=== PATIENT | female | born 1975 | race Caucasian/White ===

== ENCOUNTER 2016-07-09 12:52 | Emergency (ER) | payer MEDICARE, OTHER | END 2016-07-09 16:52 | disposition home or self-care (01) | LOC: ER 12:52 | DX: N30.10 Interstitial cystitis (chronic) without hematuria (principal); M25.512 Pain in left shoulder; K21.9 Gastro-esophageal reflux disease without esophagitis; E78.5 Hyperlipidemia, unspecified; E03.9 Hypothyroidism, unspecified; F17.210 Nicotine dependence, cigarettes, uncomplicated; E78.00 Pure hypercholesterolemia, unspecified; Z90.710 Acquired absence of both cervix and uterus; Z79.899 Other long term (current) drug therapy; Z88.1 Allergy status to other antibiotic agents | CPT/HCPCS: 36415; 96361; 96374; 96375; J1885 ==

== ENCOUNTER 2016-07-11 22:01 | Emergency (ER) | payer MEDICARE, OTHER | END 2016-07-11 22:50 | disposition home or self-care (01) | LOC: ER 22:01 | DX: J11.1 Influenza due to unidentified influenza virus with other respiratory manifestations (principal); R11.0 Nausea; R19.7 Diarrhea, unspecified; F17.210 Nicotine dependence, cigarettes, uncomplicated; Z88.8 Allergy status to other drugs, medicaments and biological substances | CPT/HCPCS: 87502; 96372; J1885 ==

== ENCOUNTER 2016-07-15 19:33 | Emergency (ER) | payer MEDICARE, OTHER | END 2016-07-15 22:50 | disposition home or self-care (01) | LOC: ER 19:33 | DX: J11.1 Influenza due to unidentified influenza virus with other respiratory manifestations (principal); H92.03 Otalgia, bilateral; K21.9 Gastro-esophageal reflux disease without esophagitis; E78.5 Hyperlipidemia, unspecified; E03.9 Hypothyroidism, unspecified; F17.210 Nicotine dependence, cigarettes, uncomplicated; Z90.710 Acquired absence of both cervix and uterus; Z98.51 Tubal ligation status; Z79.899 Other long term (current) drug therapy; Z88.1 Allergy status to other antibiotic agents ==

== ENCOUNTER 2016-10-10 15:58 | Emergency (ER) | payer MEDICARE, OTHER | END 2016-10-10 17:13 | disposition home or self-care (01) | LOC: ER 15:58 | DX: M25.512 Pain in left shoulder (principal); G89.29 Other chronic pain; R11.0 Nausea; K21.9 Gastro-esophageal reflux disease without esophagitis; F17.200 Nicotine dependence, unspecified, uncomplicated; Z79.899 Other long term (current) drug therapy; Z88.1 Allergy status to other antibiotic agents | CPT/HCPCS: 96372; J1885 ==